=== PATIENT | female | born 1960 | race Caucasian/White ===

== ENCOUNTER 2016-05-23 11:58 | Inpatient (IN) | payer OTHER ==
[2016-05-23 12:56] VITALS: BMI 29.7
--- NOTE | 2016-05-23 16:09 | HP ---
CIWA Score - CIWA Score Nausea/Vomitin-No Nausea/No Vomiting Muscle Tremors: 4-Moderate,w/Arms Extend Anxiety: 4-Mod. Anxious/Guarded Agitation: 4-Moderately Restless Paroxysmal Sweats: 1-Minimal Palms Moist Tacttile Disturbances: 3-Moderate Itch/Numb/Burn Auditory Disturbances: 0-None Visual Disturbances: 0-None Headache: 2-Mild Admission ROS BHS - HPI Chief Complaint: DETOX TX FOR XANAX DEPENDENCE Allergies/Adverse Reactions: Allergies Allergy/AdvReac Type Severity Reaction Status Date / Time phenobarbital Allergy Severe Rash Verified 05/23/16 13:42 History of Present Illness: 55 Y/O H/F WITH A HX OF XANAX DEPENDENCE AND [facility] Exam Limitations: No Limitations - Ebola screening Have you traveled outside of the country in the last 21 days: No Have you had contact with anyone from an Ebola affected area: No Have you been sick,other than usual withdrawal symptoms: No Do you have a fever: No - Review of Systems Constitutional: Chills, Night Sweats, Changes in sleep EENT: reports: Blurred Vision, Nose Congestion, Dental Problems (DENTURES, VIRY.) Respiratory: reports: Shortness of Breath (HX ASTHMA), Wheezing Cardiac: reports: Lightheadedness GI: reports: Constipated, Nausea, Poor Appetite, Vomiting : reports: Burning Musculoskeletal: reports: Back Pain, Joint Pain, Muscle Pain, Other (LEFT WRIST PAIN DUE TO FALL 6 MONTHS AGO.) Integumentary: reports: No Symptoms Reported Neuro: reports: Headache, Tremors, Unsteady Gait, Dizziness Endocrine: reports: No Symptoms Reported Hematology: reports: Anemia Psychiatric: reports: Orientated x3, Anxious, Depressed Other Systems: Reviewed and Negative Patient History - Patient Medical History Hx Anemia: Yes Hx Asthma: Yes Hx Chronic Obstructive Pulmonary Disease (COPD): No Hx Cardiac Disorders: No Hx Hypertension: Yes (no meds. BP 93/57 P 49 TODAY) Hx Seizures: Yes (seizure disorder last was 04/05.) Hx Diabetes: Yes (BORDERLINE DM-NO MEDS) Hx Gastrointestinal Disorders: No Hx Genitourinary Disorders: No Hx Sexually Transmitted Disorders: No Hx Renal Disease (ESRD): No Hx Thyroid Disease: No Hx Human Immunodeficiency Virus (HIV): No Hx Hepatitis C: Yes Hx Depression: Yes Hx Suicide Attempt: Yes (tried to cut herself 8 months ago;DENIES CURRENT IDEATIONS) Hx Schizophrenia: Yes Other Medical History: HX GALLSTONES - Patient Surgical History Past Surgical History: Yes Hx Neurologic Surgery: No Hx Cataract Extraction: No Hx Cardiac Surgery: No Hx Lung Surgery: No Hx Breast Surgery: No Hx Breast Biopsy: No Hx Abdominal Surgery: No Hx Appendectomy: No Hx Cholecystectomy: No Hx Genitourinary Surgery: No Hx Section: No Hx Orthopedic Surgery: No Hx Hysterectomy: No Other Surgical History: 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 Anesthesia Reaction: No - PPD History Previous Implant?: Yes Documented Results: Negative w/o proof Implanted On Prior R Admission?: No PPD to be Administered?: Yes - Reproductive History Patient is a Female of Child Bearing Age (11 -55 yrs old): Yes LMP comment: SINCE AFTER AN AT 19 YRS OLD Patient : No - Smoking Cessation Smoking history: Current every day smoker Have you smoked in the past 12 months: Yes Aproximately how many cigarettes per day: 5 Hx Chewing Tobacco Use: No Initiated information on smoking cessation: Yes 'Breaking Loose' booklet given: 05/23/16 - Substance & Tx. History Hx Alcohol Use: No (DENIES) Hx Substance Use: Yes (XANAX/HEROIN/KLONOPIN) Substance Use Type: Heroin, Tranquilizers Hx Substance Use Treatment: Yes (ON [facility] 70 MG PO DAILY) - Substances Abused Benzodiazepine (Klonopin) Route: Oral Frequency: Daily Amount used: 4MG Age of first use: 12 Date of Last Use: 05/23/16 Heroin Route: Inhalation Frequency: Daily Amount used: 10 BAGS Age of first use: 12 Date of Last Use: 05/23/16 XANAX Route: Oral Frequency: Daily Amount used: 12MG Age of first use: 12 Date of Last Use: 05/23/16 Family Disease History - Family Disease History Family Disease History: Diabetes: Grandparent, Mother, Son (HTN), Other: Son Admission Physical Exam BHS - Vital Signs Vital Signs: Vital Signs - 24 hr 05/23/16 12:52 Temperature 96.8 F L Pulse Rate 49 L Respiratory 18 Rate Blood Pressure 93/57 - Physical General Appearance: Yes: Moderate Distress, Irritable, Anxious HEENTM: Yes: EOMI, Normocephalic, KAYLEIGH, Pharynx Normal Respiratory: Yes: Chest Non-Tender, Lungs Clear, Normal Breath Sounds, No Respiratory Distress Neck: Yes: Supple, Trachea in good position Breast: Yes: Breast Exam Deferred Cardiology: Yes: Regular Rhythm, S1, S2, Bradycardia Abdominal: Yes: Normal Bowel Sounds, Non Tender, Soft Genitourinary: Yes: Within Normal Limits Back: Yes: Within Normal Limits Musculoskeletal: Yes: full range of Motion, Gait Steady Neurological: Yes: office employee II-XII NML intact, Fully Oriented, Alert Integumentary: Yes: Dry, Warm Lymphatic: Yes: Within Normal Limits - Diagnostic (1) Sedative, hypnotic or anxiolytic dependence with withdrawal, uncomplicated Current Visit: Yes Status: Acute (2) Methadone maintenance therapy patient Current Visit: Yes Status: Chronic (3) History of anemia Current Visit: Yes Status: Chronic (4) Asthma Current Visit: Yes Status: Chronic Qualifiers: Asthma severity: mild intermittent Asthma complication type: uncomplicated Qualified Code(s): J45.20 - Mild intermittent asthma, uncomplicated (5) Hypertension Current Visit: Yes Status: Chronic Qualifiers: Hypertension type: essential hypertension Qualified Code(s): I10 - Essential (primary) hypertension (6) History of seizure Current Visit: Yes Status: Suspected (7) Borderline diabetes mellitus Current Visit: Yes Status: Suspected (8) History of hepatitis C Current Visit: Yes Status: Chronic Cleared for Admission [facility] - Detox or Rehab [facility] Level of Care: Medically Managed Detox Regimen/Protocol: Valium [facility] Breath Alcohol Content Breath Alcohol Content: 0 Urine Pregancy Test - Result Urine Test Results: Negative- NO Line Present Urine Drug Screen - Results Drug Screen Negative: No Urine Drug Screen Results: OPI-Opiates, MET-Methamphetamine, BZO-Benzodiazepines , MTD-Methadone, OXY-Oxycodone
[2016-05-23] MEDS ORDERED: diazePAM 5 MG TABLET PO PRN (16:30)
[2016-05-23] MEDS ORDERED: MENTHOL/PHENOL 1 EACH UD MM PRN (16:30)
[2016-05-23] MEDS ORDERED: ACETAMINOPHEN 325 MG TABLET (FP) PO PRN (16:30)
[2016-05-23] MEDS ORDERED: MAGNESIUM CITRATE 300 ML BOTTLE PO PRN (16:30)
[2016-05-23] MEDS ORDERED: IBUPROFEN 400 MG TABLET (FP) PO PRN (16:30)
[2016-05-23] MEDS ORDERED: guaiFENesin/D-METHORPHAN HB 10 ML UNIT-DOSE CUPS PO PRN (16:30)
[2016-05-23] MEDS ORDERED: hydrOXYzine PAMOATE 25 MG CAPSULE (FP) PO PRN (16:30)
[2016-05-23] MEDS ORDERED: MAGNESIUM HYDROX 2400MG/30ML ORAL SUSPENSION 30 ML CUP PO PRN (16:30)
[2016-05-23] MEDS ORDERED: LOPERAMIDE HCL 2 MG CAPSULE PO PRN (16:30)
[2016-05-23] MEDS ORDERED: MAG HYDROX/AL HYDROX/SIMETH 30 ML UNIT-DOSE CUP PO PRN (16:30)
[2016-05-23] MEDS ORDERED: NICOTINE POLACRILEX 2 MG GUM BC PRN (16:30)
[2016-05-23] MEDS ORDERED: P-EPHED 60MG/TRIPROLIDI 2.5MG TABLET PO PRN (16:30)
[2016-05-23] MEDS ORDERED: diazePAM 5 MG TABLET PO ONE (17:30)
[2016-05-23] MEDS: NICOTINE 14 MG/24 HOURS TOPICAL PATCH TD SCH (17:43)
[2016-05-23] MEDS: diphenhydrAMINE HCL 50 MG CAPSULE PO PRN (22:07)
[2016-05-23] MEDS: THIAMINE HCL 100 MG TABLET (FP) PO SCH (22:07)
[2016-05-23] MEDS: diazePAM 5 MG TABLET PO SCH (22:07)
[2016-05-23 23:02] LABS: URINE APPEARANCE CLOUDY; URINE BLOOD NEGATIVE (NEGATIVE); URINE COLOR AMBER; URINE GLUCOSE (UA) NEGATIVE (NEGATIVE); URINE KETONE TRACE (NEGATIVE); URINE NITRITE NEGATIVE (NEGATIVE); URINE UROBILINOGEN 4.0 E.U/dl E.U./dl (0.2-1.0)
[2016-05-23 23:11] LABS: URINE LEUK ESTERASE 1+ (NEGATIVE); URINE PROTEIN 1+ (NEGATIVE)
[2016-05-23 23:14] LABS: URINE BACTERIA RARE /hpf (NONE SEEN); URINE MUCUS MANY; URINE RBC 5 /hpf (0-3); URINE WBC 6 /hpf (3-5); YEAST RARE
[2016-05-24] MEDS: diazePAM 5 MG TABLET PO SCH ×3 (05:21→21:00)
[2016-05-24] MEDS ORDERED: METHADONE HCL 10 MG TABLET PO ONE (08:26)
[2016-05-24] MEDS ORDERED: METHADONE 40 MG, METHADONE 30 MG PO ONE (08:31)
[2016-05-24] MEDS ORDERED: METHADONE HCL 10 MG TABLET ONE (09:04)
[2016-05-24] MEDS ORDERED: METHADONE HCL 40 MG DISPERSABLE TABLET ONE (09:05)
--- NOTE | 2016-05-24 10:04 | PN ---
S CIWA - CIWA Score Nausea/Vomitin-No Nausea/No Vomiting Muscle Tremors: 4-Moderate,w/Arms Extend Anxiety: 3 Agitation: 4-Moderately Restless Paroxysmal Sweats: 3 Orientation: 0-Oriented Tacttile Disturbances: 0-None Auditory Disturbances: 0-None Visual Disturbances: 0-None Headache: 1-Very Mild CIWA-Ar Total Score: 15 BHS Progress Note (SOAP) Subjective: body aches irritable agitation sweats shakes dizzy Objective: 05/24/16 10:03 Vital Signs Temperature 96.4 F L 05/24/16 06:18 Pulse Rate 78 05/24/16 06:18 Respiratory Rate 18 05/24/16 06:18 Blood Pressure 98/68 05/24/16 06:18 O2 Sat by Pulse Oximetry (%) Laboratory Tests 05/23/16 22:50 Urine Color Izabella Urine Appearance Cloudy Urine pH 5.0 Ur Specific [place] 1.030 Urine Protein 1+ H Urine Glucose (UA) Negative Urine Ketones Trace H Urine Blood Negative Urine Nitrite Negative Urine Bilirubin 2.0 Urine Urobilinogen 4.0 e.u/dl H Ur Leukocyte Esterase 1+ H Urine RBC 5 Urine WBC 6 Ur Epithelial Cells Few Urine Bacteria Rare Urine Mucus Many Urine Yeast Rare labs pending awake/alert lying in bed no acute distress Assessment: 05/24/16 10:03 withdrawal sx Plan: continue detox increase fluids labs pending
[2016-05-24] MEDS: NICOTINE 14 MG/24 HOURS TOPICAL PATCH TD SCH (10:12)
[2016-05-24] MEDS: PRENATAL VITAMINS W/ FOLIC ACID TABLET (FP) PO SCH (10:12)
[2016-05-24 10:29] LABS: MCH 30.5 pg (25.7-33.7); MCHC 33.2 g/dl (32.0-36.0); MEAN CELL VOLUME 91.7 fl (80-96); MEAN PLT VOLUME 10.3 fl (7.5-11.1); PLATELET COUNT 176 K/MM3 (134-434); RDW 13.1 % (11.6-15.6); WHITE BLOOD COUNT 5.3 K/mm3 (4.0-10.0)
[2016-05-24 10:41] LABS: ALBUMIN 3.5 g/dl (3.4-5.0); ANION GAP 10 (8-16); CALCIUM 8.8 mg/dL (8.5-10.1); CO2 30 mmol/L (21-32); GLUCOSE,RANDOM 84 mg/dL (74-106); SGOT/AST 26 U/L (15-37); SGPT/ALT 18 U/L (12-78)
[2016-05-24 10:44] LABS: ALK PHOS 105 U/L (45-117); BILIRUBIN,TOTAL 0.2 mg/dL (0.2-1.0); CREATININE 0.9 mg/dL (0.55-1.02); TOT PROT 6.4 g/dl (6.4-8.2)
[2016-05-24 11:02] LABS: HIV 1 & 2 AB NEGATIVE; HIV 1 AGp24 NEGATIVE
--- NOTE | 2016-05-24 11:07 | EKG ---
Test Reason : Blood Pressure : / mmHG Vent. Rate : 049 BPM Atrial Rate : 049 BPM P-R Int : 238 ms QRS Dur : 088 ms QT Int : 514 ms P-R-T Axes : 051 044 063 degrees QTc Int : 464 ms SINUS BRADYCARDIA WITH 1ST DEGREE A-V BLOCK OTHERWISE NORMAL ECG NO PREVIOUS ECGS AVAILABLE Confirmed by GAYLA POE, LUIS ALFREDO ([id number]) on 05/24/2016 11:07:16 AM Referred By: Steven Redman Confirmed By:LUIS ALFREDO SHUKLA MD
[2016-05-24 12:43] LABS: SICKLE CELL SCREEN NEGATIVE (NEGATIVE)
--- NOTE | 2016-05-24 13:08 | CONSULT ---
[facility] Psychiatric Consult - Data Date of interview: 05/24/16 Admission source: [facility] Identifying data: First admission to [facility] for this 55 y/o female seeking detox treatment on for heroin and benzodiazepine dependence.Patient is single,a mother of two,domiciled,unemployed and supported on Disability benefits. Substance Abuse History: - Smoking Cessation. Smoking history: Current every day smoker. Have you smoked in the past 12 months: Yes. Aproximately how many cigarettes per day: 5. Hx Chewing Tobacco Use: No. Initiated information on smoking cessation: Yes. 'Breaking Loose' booklet given: 05/23/16. - Substance & Tx. History. Hx Alcohol Use: No (DENIES). Hx Substance Use: Yes (XANAX/ HEROIN/KLONOPIN). Substance Use Type: Heroin, Tranquilizers. Hx Substance Use Treatment: Yes (ON [facility] 70 MG PO DAILY). - Substances Abused. Benzodiazepine (Klonopin). Route: Oral. Frequency: Daily. Amount used: 4MG. Age of first use: 12. Date of Last Use: 05/23/16. Heroin. Route: Inhalation. Frequency: Daily. Amount used: 10 BAGS. Age of first use: 12. Date of Last Use: 05/23/16. XANAX. Route: Oral. Frequency: Daily. Amount used: 12MG. Age of first use: 12. Date of Last Use: 05/23/16. Confirmed by the patient in this session. Medical History: Hepatitis C,anemia,bronchial asthma,hypercholesterolemia, hypothyroidism,seizure disorder (on dilantin) and hypertension. Psychiatric History: First contact with Psychiatry was at age 13 due to behavioral issues.Patient reports a history of multiple psychiatric hospitalizations (most occurred at [facility] and [facility]).Ms Leonardo states that she was diagnosed with " schizophrenia and bipolar disorder ".Medications endorsed : celexa 20 mg/day + trazodone 50 mg/hs + gabapentin 400 mg po bid.Patient is on methadone maintenance (70 mg/day) at the [facility] program in [facility].She admits to a history of suicide attempts via self-mutilation (cutting). Physical/Sexual Abuse/Trauma History: Patient denies. Additional Comment: Urine Drug Screen Results: OPI-Opiates, MET-Methamphetamine , BZO-Benzodiazepines, MTD-Methadone, OXY-Oxycodone.Noted. Mental Status Exam - Mental Status Exam Alert and Oriented to: Time, Place, Person Cognitive Function: Grossly Intact Patient Appearance: Well Groomed Mood: Withdrawn, Anxious Affect: Mood Congruent Patient Behavior: Fatigued, Cooperative Speech Pattern: Clear Voice Loudness: Normal Thought Process: Goal Oriented Thought Disorder: Not Present Hallucinations: Denies Suicidal Ideation: Denies Homicidal Ideation: Denies Insight/Judgement: Poor Sleep: Poorly, Difficulty falling asleep Appetite: Good Muscle strength/Tone: Normal Gait/Station: Normal Psychiatric Findings - Problem List ([place] 1, 2,3) (1) Opioid dependence on agonist therapy Current Visit: Yes Status: Acute (2) Sedative, hypnotic or anxiolytic dependence with withdrawal, uncomplicated Current Visit: Yes Status: Acute (3) Nicotine dependence Current Visit: Yes Status: Acute (4) Amphetamine abuse Current Visit: Yes Status: Acute (5) Schizoaffective disorder Current Visit: Yes Status: Chronic Qualifiers: Schizoaffective disorder type: depressive Qualified Code(s): F25.1 - Schizoaffective disorder, depressive type Comment: History. (6) Asthma Current Visit: Yes Status: Chronic Qualifiers: Asthma severity: mild intermittent Asthma complication type: uncomplicated Qualified Code(s): J45.20 - Mild intermittent asthma, uncomplicated (7) History of anemia Current Visit: Yes Status: Chronic (8) History of hepatitis C Current Visit: Yes Status: Chronic (9) Hypertension Current Visit: Yes Status: Chronic Qualifiers: Hypertension type: essential hypertension Qualified Code(s): I10 - Essential (primary) hypertension (10) Borderline diabetes mellitus Current Visit: Yes Status: Chronic (11) History of seizure Current Visit: Yes Status: Chronic (12) Insomnia Current Visit: Yes Status: Chronic - Initial Treatment Plan Initial Treatment Plan: Psychoeducation.Detoxification.Medications : celexa 20 mg po daily + trazodone 50 mg po hs + gabapentin 400 mg po bid (confirmed by pharmacy claims).Side effects/benefits discussed with the patient.She denies being prescribed atypical agents (despite filled scripts for risperdal on 2015).Ms Leonardo agrees to follow this careplan.Observation.
[2016-05-24] MEDS: THIAMINE HCL 100 MG TABLET (FP) PO SCH (21:00)
[2016-05-24] MEDS: traZODone HCL 50 MG TABLET (FP) PO SCH (21:00)
[2016-05-24] MEDS: GABAPENTIN 400 MG CAPSULE (FP) PO SCH (21:00)
[2016-05-25] MEDS ORDERED: METHADONE HCL 40 MG DISPERSABLE TABLET ONE (04:41)
[2016-05-25] MEDS ORDERED: METHADONE HCL 10 MG TABLET ONE (04:41)
[2016-05-25] MEDS: METHADONE 40 MG, METHADONE 30 MG PO SCH (05:53)
[2016-05-25] MEDS ORDERED: METHADONE HCL 40 MG DISPERSABLE TABLET PO SCH (06:00)
[2016-05-25] MEDS: GABAPENTIN 400 MG CAPSULE (FP) PO SCH ×2 (10:18→22:31)
[2016-05-25] MEDS: PRENATAL VITAMINS W/ FOLIC ACID TABLET (FP) PO SCH (10:18)
[2016-05-25] MEDS: CITALOPRAM HYDROBROMIDE 20 MG TABLET (FP) PO SCH (10:18)
[2016-05-25] MEDS: NICOTINE 14 MG/24 HOURS TOPICAL PATCH TD SCH (10:19)
[2016-05-25] MEDS: diazePAM 5 MG TABLET PO SCH ×2 (10:20→22:31)
--- NOTE | 2016-05-25 11:25 | PN ---
[facility] CIWA - CIWA Score Nausea/Vomitin Muscle Tremors: 3 Anxiety: 2 Agitation: 3 Paroxysmal Sweats: 3 Orientation: 0-Oriented Tacttile Disturbances: 1-Very Mild Itch/Numbness Auditory Disturbances: 0-None Visual Disturbances: 0-None Headache: 0-None Present CIWA-Ar Total Score: 15 S Progress Note (SOAP) Subjective: interrupted sleep, sweats , shakes , nausea , lbp Objective: 05/25/16 11:25 Vital Signs Temperature 97.7 F 05/25/16 10:17 Pulse Rate 64 05/25/16 10:17 Respiratory Rate 16 05/25/16 10:17 Blood Pressure 119/63 05/25/16 10:17 O2 Sat by Pulse Oximetry (%) Vital Signs Temperature 97.7 F 05/25/16 10:17 Pulse Rate 64 05/25/16 10:17 Respiratory Rate 16 05/25/16 10:17 Blood Pressure 119/63 05/25/16 10:17 O2 Sat by Pulse Oximetry (%) Laboratory Tests 05/23/16 05/23/16 05/24/16 13:00 22:50 06:00 WBC 5.3 RBC 4.18 Hgb 12.7 Hct 38.3 MCV 91.7 MCHC 33.2 RDW 13.1 Plt Count 176 MPV 10.3 Sickle Cell Screen Negative Sodium Potassium Chloride Carbon Dioxide Anion Gap BUN Creatinine Creat Clearance w eGFR Random Glucose Calcium Total Bilirubin AST ALT Alkaline Phosphatase Total Protein Albumin Urine Color Izabella Urine Appearance Cloudy Urine pH 5.0 Ur Specific [place] 1.030 Urine Protein 1+ H Urine Glucose (UA) Negative Urine Ketones Trace H Urine Blood Negative Urine Nitrite Negative Urine Bilirubin 2.0 Urine Urobilinogen 4.0 e.u/dl H Ur Leukocyte Esterase 1+ H Urine RBC 5 Urine WBC 6 Ur Epithelial Cells Few Urine Bacteria Rare Urine Mucus Many Urine Yeast Rare RPR Titer HIV 1&2 Antibody Screen Negative HIV P24 Antigen Negative 05/24/16 05/24/16 06:00 06:00 WBC RBC Hgb Hct MCV MCHC RDW Plt Count MPV Sickle Cell Screen Sodium 142 Potassium 4.0 Chloride 102 Carbon Dioxide 30 Anion Gap 10 BUN 13 Creatinine 0.9 Creat Clearance w eGFR > 60 Random Glucose 84 Calcium 8.8 Total Bilirubin 0.2 AST 26 ALT 18 Alkaline Phosphatase 105 Total Protein 6.4 Albumin 3.5 Urine Color Urine Appearance Urine pH Ur Specific [place] Urine Protein Urine Glucose (UA) Urine Ketones Urine Blood Urine Nitrite Urine Bilirubin Urine Urobilinogen Ur Leukocyte Esterase Urine RBC Urine WBC Ur Epithelial Cells Urine Bacteria Urine Mucus Urine Yeast RPR Titer Nonreactive HIV 1&2 Antibody Screen HIV P24 Antigen pt aox3 in nad ambulating Assessment: 05/25/16 11:29 withdrawal sx's lbp 05/25/16 11:30 Plan: cont. detox increase fluids flexeril prn
[2016-05-25] MEDS ORDERED: CYCLOBENZAPRINE HCL 10 MG TABLET (FP) PO PRN (11:30)
[2016-05-25] MEDS: THIAMINE HCL 100 MG TABLET (FP) PO SCH (22:31)
[2016-05-25] MEDS: traZODone HCL 50 MG TABLET (FP) PO SCH (22:31)
[2016-05-25] MEDS: diphenhydrAMINE HCL 50 MG CAPSULE PO PRN (22:32)
[2016-05-26] MEDS ORDERED: METHADONE HCL 10 MG TABLET ONE (04:30)
[2016-05-26] MEDS ORDERED: METHADONE HCL 40 MG DISPERSABLE TABLET ONE (04:30)
[2016-05-26] MEDS: METHADONE 40 MG, METHADONE 30 MG PO SCH (05:45)
[2016-05-26] MEDS: diazePAM 5 MG TABLET PO SCH ×2 (10:20→22:13)
[2016-05-26] MEDS: GABAPENTIN 400 MG CAPSULE (FP) PO SCH ×2 (10:20→22:13)
[2016-05-26] MEDS: CITALOPRAM HYDROBROMIDE 20 MG TABLET (FP) PO SCH (10:20)
[2016-05-26] MEDS: PRENATAL VITAMINS W/ FOLIC ACID TABLET (FP) PO SCH (10:21)
[2016-05-26] MEDS: NICOTINE 14 MG/24 HOURS TOPICAL PATCH TD SCH (10:22)
--- NOTE | 2016-05-26 10:27 | PN ---
BHS Progress Note (SOAP) Subjective: sweats shakes interrupted sleep muscle spasms Objective: 05/26/16 10:26 Vital Signs Temperature 98.2 F 05/26/16 09:48 Pulse Rate 60 05/26/16 09:48 Respiratory Rate 18 05/26/16 09:48 Blood Pressure 105/69 05/26/16 09:48 O2 Sat by Pulse Oximetry (%) awake/alert ambulating no acute distress Assessment: 05/26/16 10:26 withdrawal sx Plan: continue detox increase fluids flexiril prn d/c in am
[2016-05-26] MEDS: traZODone HCL 50 MG TABLET (FP) PO SCH (22:13)
[2016-05-26] MEDS: THIAMINE HCL 100 MG TABLET (FP) PO SCH (22:13)
[2016-05-26] MEDS: diphenhydrAMINE HCL 50 MG CAPSULE PO PRN (22:14)
[2016-05-27] MEDS ORDERED: METHADONE HCL 40 MG DISPERSABLE TABLET ONE (04:54)
[2016-05-27] MEDS ORDERED: METHADONE HCL 10 MG TABLET ONE (04:54)
[2016-05-27] MEDS: METHADONE 40 MG, METHADONE 30 MG PO SCH (05:21)
--- NOTE | 2016-05-27 08:51 | DS ---
[facility] Detox Discharge Summary Admission Date: 05/23/16 Discharge Date: 05/27/16 - History Present History: Opioid Dependence, Sedative Dependence, MMTP - Physical Exam Results Vital Signs: Vital Signs Temperature 98.6 F 05/26/16 21:59 Pulse Rate 65 05/26/16 21:59 Respiratory Rate 18 05/27/16 03:30 Blood Pressure 113/64 05/26/16 21:59 O2 Sat by Pulse Oximetry (%) - Treatment Hospital Course: Detox Protocol Followed, Detoxed Safely, Responded well, Discharged Condition Good, Rehab Referral Accepted - Medication Discharge Medications: Ambulatory Orders Albuterol Sulfate Inhaler - [Ventolin Hfa Inhaler -] 2 inh PO Q4H PRN 05/23/16 Budesonide/Formeterol Fumarate [SYMBICORT 160/4.5mcg -] 1 inh PO BID 05/23/16 Citalopram Hydrobromide [Celexa -] 20 mg PO DAILY 05/23/16 Ergocalciferol [Drisdol -] 50,000 unit PO Q7D@1000 05/23/16 Gabapentin [Neurontin -] 400 mg PO DAILY 05/23/16 Phenytoin Sodium Extended 300 mg PO DAILY 05/23/16 Trazodone HCl [Desyrel -] 50 mg PO HS 05/23/16 Trazodone HCl [Desyrel -] 100 mg PO HS 05/23/16 - Diagnosis (1) Amphetamine abuse Current Visit: Yes Status: Chronic (2) Nicotine dependence Current Visit: Yes Status: Chronic Qualifiers: Nicotine product type: cigarettes Substance use status: uncomplicated Qualified Code(s): F17.210 - Nicotine dependence, cigarettes, uncomplicated (3) Opioid dependence on agonist therapy Current Visit: Yes Status: Chronic (4) Sedative, hypnotic or anxiolytic dependence with withdrawal, uncomplicated Current Visit: Yes Status: Chronic (5) Asthma Current Visit: Yes Status: Chronic Qualifiers: Asthma severity: mild intermittent Asthma complication type: uncomplicated Qualified Code(s): J45.20 - Mild intermittent asthma, uncomplicated (6) Borderline diabetes mellitus Current Visit: Yes Status: Chronic (7) History of anemia Current Visit: Yes Status: Chronic (8) History of hepatitis C Current Visit: Yes Status: Chronic (9) History of seizure Current Visit: Yes Status: Chronic (10) Hypertension Current Visit: Yes Status: Chronic Qualifiers: Hypertension type: essential hypertension Qualified Code(s): I10 - Essential (primary) hypertension (11) Insomnia Current Visit: Yes Status: Chronic (12) Methadone maintenance therapy patient Current Visit: Yes Status: Chronic (13) Schizoaffective disorder Current Visit: Yes Status: Chronic Qualifiers: Schizoaffective disorder type: depressive Qualified Code(s): F25.1 - Schizoaffective disorder, depressive type - AMA Did Patient Leave Against Medical Advice: No
[2016-05-27] MEDS: GABAPENTIN 400 MG CAPSULE (FP) PO SCH (09:22)
[2016-05-27] MEDS: PRENATAL VITAMINS W/ FOLIC ACID TABLET (FP) PO SCH (09:22)
[2016-05-27] MEDS: CITALOPRAM HYDROBROMIDE 20 MG TABLET (FP) PO SCH (09:30)
[2016-05-27] MEDS ORDERED: diazePAM 5 MG TABLET PO SCH (10:00)
[2016-05-27 10:26] VITALS: BP 96/58; PULSE 59; TEMP 97.5
[2016-05-27] MEDS: NICOTINE 14 MG/24 HOURS TOPICAL PATCH TD SCH (10:54)
== END 2016-05-27 09:20 | disposition home or self-care (01) | DRG 773 ==
LOC: YASAS 11:58 → Y6N 15:09
PROVIDERS: ADMIT Internal Medicine Addiction Medicine; ATTEND Internal Medicine Addiction Medicine
PROC: HZ2ZZZZ Detoxification Services for Substance Abuse Treatment (ICD-10-PCS; principal; 2016-05-27)
DX: F11.20 Opioid dependence, uncomplicated (principal); F13.230 Sedative, hypnotic or anxiolytic dependence with withdrawal, uncomplicated; F17.210 Nicotine dependence, cigarettes, uncomplicated; F15.10 Other stimulant abuse, uncomplicated; G25.1 Drug-induced tremor; G47.00 Insomnia, unspecified; I10 Essential (primary) hypertension; J45.20 Mild intermittent asthma, uncomplicated; B18.2 Chronic viral hepatitis C; Z86.69 Personal history of other diseases of the nervous system and sense organs
CPT/HCPCS: 36415; 80053; 81003; 81015; 85027; 85660; 86593; 87389; 93005; 93010